=== PATIENT | female | born 1960 | race Caucasian/White ===

== ENCOUNTER 2022-05-09 10:09 | Outpatient (CLI) | payer OTHER | END 2022-05-09 10:10 | disposition home or self-care (01) | LOC: CSHMAMMO 10:09 | PROVIDERS: ATTEND Registered Nurse | DX: Z12.31 Encounter for screening mammogram for malignant neoplasm of breast (principal); Z85.3 Personal history of malignant neoplasm of breast; Z90.12 Acquired absence of left breast and nipple; Z98.82 Breast implant status | CPT/HCPCS: 77063; 77067 ==

== ENCOUNTER 2023-12-25 09:33 | Outpatient (CLI) | payer MEDICARE | END 2023-12-25 09:34 | disposition home or self-care (01) | LOC: CSHRAD 09:33 | PROVIDERS: ATTEND Otolaryngology | DX: C06.9 Malignant neoplasm of mouth, unspecified (principal); Z98.890 Other specified postprocedural states | CPT/HCPCS: 70491; 71260; 82565; Q9967 ==

== ENCOUNTER 2024-04-10 09:58 | Outpatient (CLI) | payer MEDICARE ==
[2024-04-10] MEDS ORDERED: Iopamidol 300 61% 100 ML VIAL FS ONE (10:20)
== END 2024-04-10 09:59 | disposition home or self-care (01) ==
LOC: CSHCT 09:58
PROVIDERS: ATTEND Otolaryngology
DX: C06.9 Malignant neoplasm of mouth, unspecified (principal)
CPT/HCPCS: 36415; 70491; 71260; 82565

== ENCOUNTER 2024-07-25 09:16 | Outpatient (CLI) | payer MEDICARE ==
[2024-07-25] MEDS ORDERED: Iopamidol 300 61% 100 ML VIAL FS ONE (13:30)
== END 2024-07-25 09:17 | disposition home or self-care (01) ==
LOC: CSHCT 09:16
PROVIDERS: ATTEND Otolaryngology
DX: C06.9 Malignant neoplasm of mouth, unspecified (principal); Z98.890 Other specified postprocedural states
CPT/HCPCS: 36415; 70491; 71260; 82565; Q9967